=== PATIENT | male | born 1970 | race Caucasian/White ===

== ENCOUNTER 2019-11-25 10:14 | Inpatient (IN) | payer OTHER ==
--- NOTE | 2019-11-25 10:54 | BHS.RME ---
Substance Use & Tx History - Substance Use History Alcohol Substance amount: 2 pints vodka Frequency of use: Daily Substance route: Oral Date of Last Use: 11/24/19 (started age 26 ) Heroin Substance amount: 8-12 bags Frequency of use: Daily Substance route: Injection (ex: intravenous or skin popping) Date of Last Use: 11/24/19 Cocaine- Powder Substance amount: $20 Frequency of use: Daily Substance route: Injection (ex: intravenous or skin popping) Date of Last Use: 11/24/19 Nicotine Substance amount: 4 ciggs Frequency of use: Daily Substance route: Smoking Date of Last Use: 11/25/19 COWS - Scale Resting Pulse: 0= [place] 80 or Below Sweatin= Chills/Flushing Restless Observation: 1= Difficult to Sit Still Pupil Size: 1= Pupils >than Normal Bone or Joint Aches: 1= Mild Discomfort Runny Nose/ Eye Tearin= Runny Nose/Eyes GI Upset > 30mins: 1= Stomach Cramp Tremor Observation: 1= Tremor [place], Not Seen Yawning Observation: 1= 1-2x During Session Anxiety or Irritability: 1=Feels Anxious/Irritable Goose Flesh Skin: 0=Smooth Skin COWS Score: 10 CIWA Nausea/Vomitin Muscle Tremors: 3 Anxiety: 3 Agitation: 3 Paroxysmal Sweats: 4-Forehead w/Sweat Beads Orientation: 0-Oriented Tacttile Disturbances: 0-None Auditory Disturbances: 0-None Visual Disturbances: 0-None Headache: 2-Mild CIWA-Ar Total Score: 18
[2019-11-25 11:32] VITALS: BMI 21.0
--- NOTE | 2019-11-25 11:48 | HP ---
COWS - Scale Resting Pulse: 0= [place] 80 or Below Sweatin= Chills/Flushing Restless Observation: 1= Difficult to Sit Still Pupil Size: 1= Pupils >than Normal Bone or Joint Aches: 1= Mild Discomfort Runny Nose/ Eye Tearin= Runny Nose/Eyes GI Upset > 30mins: 1= Stomach Cramp Tremor Observation: 1= Tremor [place], Not Seen Yawning Observation: 1= 1-2x During Session Anxiety or Irritability: 1=Feels Anxious/Irritable Goose Flesh Skin: 0=Smooth Skin COWS Score: 10 CIWA Score Nausea/Vomitin Muscle Tremors: 3 Anxiety: 3 Agitation: 3 Paroxysmal Sweats: 4-Forehead w/Sweat Beads Orientation: 0-Oriented Tacttile Disturbances: 0-None Auditory Disturbances: 0-None Visual Disturbances: 0-None Headache: 2-Mild CIWA-Ar Total Score: 18 - Admission Criteria OASAS Guidelines: Admission for Medically Managed Detox: Requires at least one of the followin. CIWA greater than 12 2. Seizures within the past 24 hours 3. Delirium tremens within the past 24 hours 4. Hallucinations within the past 24 hours 5. Acute intervention needed for co occurring medical disorder 6. Acute intervention needed for co occurring psychiatric disorder 7. Severe withdrawal that cannot be handled at a lower level of care (continued vomiting, continued diarrhea, abnormal vital signs) requiring intravenous medication and/or fluids 8. Admitting History and Physical - Admission Chief Complaint: Mr. Churchill is a 49 yo man who presents to [facility] requesting detox for alcohol, heroin and nicotine use. Additionally he uses cocaine History of Present Illness: Mr. Churchill is a 49 yo man who presents to [facility] requesting detox for alcohol, heroin and nicotine use. Additionally he uses cocaine He was here several years ago, signed out AMA PMH: HIV on Biktarvy, states he is compliant, HCV untreated. psoriasis PSH: none Psych: Depression, 2 years ago, on Zyprexa, last taken 4 days ago SOC: one room rental in the [place] Legal: none Substance Use History Alcohol Substance amount: 2 pints vodka Frequency of use: Daily Substance route: Oral Date of Last Use: 11/24/19 (started age 26 ) No seizures No blackouts Admits to eyeopener, if not gets shakes Heroin Substance amount: 8-12 bags Frequency of use: Daily Substance route: Injection (ex: intravenous or skin popping) Date of Last Use: 11/24/19 First use age 26y No OD Has Narcan at home Cocaine- Powder Substance amount: $20 Frequency of use: Daily Substance route: Injection (ex: intravenous or skin popping) Date of Last Use: 11/24/19 Began use at age 26y Nicotine Substance amount: 4 ciggs Frequency of use: Daily Substance route: Smoking Date of Last Use: 11/25/19 Began use age 15 y History Source: Patient Limitations to Obtaining History: No Limitations - Smoking History Smoking history: Current every day smoker Have you smoked in the past 12 months: Yes Aproximately how many cigarettes per day: 2 - Alcohol/Substance Use Hx Alcohol Use: Yes (BEER) Admission [facility] Allergies/Adverse Reactions: Allergies Allergy/AdvReac Type Severity Reaction Status Date / Time No Known Allergies Allergy Verified 12/05/14 12:51 Exam Limitations: No Limitations - Ebola screening Have you traveled outside of the country in the last 21 days: No Have you been sick,other than usual withdrawal symptoms: No Do you have a fever: No - Review of Systems Constitutional: Changes in sleep (trouble falling asleep and staying asleep), Unintentional Wgt. Loss (40 lb weight loss in the past 18 mos.) EENT: reports: Blurred Vision (feels he needs glasses, does not have), Hearing Loss (mild) Respiratory: reports: No Symptoms reported Cardiac: reports: No Symptoms Reported GI: reports: Nausea : reports: No Symptoms Reported Musculoskeletal: reports: Back Pain Integumentary: reports: No Symptoms Reported Neuro: reports: No Symptoms reported Endocrine: reports: No Symptoms Reported Hematology: reports: No Symptoms Reported Psychiatric: reports: Depressed (no SI) Patient History - Patient Medical History Hx Anemia: No Hx Asthma: No Hx Chronic Obstructive Pulmonary Disease (COPD): No Hx Cancer: No Hx Cardiac Disorders: No Hx Congestive Heart Failure: No Hx Hypertension: No Hx Hypercholesterolemia: No Hx Pacemaker: No HX Cerebrovascular Accident: No Hx Seizures: No Hx Dementia: No Hx Diabetes: No Hx Gastrointestinal Disorders: No Hx Liver Disease: Yes Hx Genitourinary Disorders: No Hx Sexually Transmitted Disorders: Yes (syphilis) Hx Renal Disease (ESRD): No Hx Thyroid Disease: No Hx Human Immunodeficiency Virus (HIV): Yes (1995,CD4+ 130) Hx Hepatitis C: Yes Hx Depression: Yes Hx Suicide Attempt: No Hx Bipolar Disorder: Yes Hx Schizophrenia: No - Patient Surgical History Past Surgical History: No Hx Neurologic Surgery: No Hx Cataract Extraction: No Hx Cardiac Surgery: No Hx Lung Surgery: No Hx Breast Surgery: No Hx Breast Biopsy: No Hx Abdominal Surgery: No Hx Appendectomy: No Hx Cholecystectomy: No Hx Genitourinary Surgery: No Hx Section: No Hx Orthopedic Surgery: No Anesthesia Reaction: No - PPD History Date: 12/07/14 - Smoking Cessation Smoking history: Current every day smoker Have you smoked in the past 12 months: Yes Aproximately how many cigarettes per day: 4 Hx Chewing Tobacco Use: No Initiated information on smoking cessation: Yes 'Breaking Loose' booklet given: 11/25/19 Admission Physical Exam [facility] - Vital Signs Vital Signs: Vital Signs - 24 hr 11/25/19 11:29 Temperature 97.2 F L Pulse Rate 57 L Respiratory 18 Rate Blood Pressure 120/79 - Physical General Appearance: Yes: No Apparent Distress, Nourished HEENTM: Yes: EOMI, Hearing grossly Normal, Normocephalic, Normal Voice Respiratory: Yes: Lungs Clear, No Respiratory Distress, No Accessory Muscle Use Neck: Yes: Within Normal Limits, Supple Breast: Yes: Breast Exam Deferred Cardiology: Yes: Regular Rhythm, Regular Rate Abdominal: Yes: Non Tender, Flat, Soft, Decreased BS Genitourinary: Yes: Other (deferred) Back: Yes: Normal Inspection Musculoskeletal: Yes: Gait Steady Extremities: Yes: Normal Inspection, Non-Tender Neurological: Yes: Alert, Normal Response Integumentary: Yes: Track Palomo (all clean.), Other (dry patches over cheeks, behind ear, cervical region) Cleared for Admission S - Detox or Rehab [facility] Level of Care: Medically Managed Detox Regimen/Protocol: Methadone/Librium Breathalyzer - Breathalyzer Breathalyzer: 0 Urine Drug Screen - Test Device Lot number: [id number] Expiration date: 06/14/21 - Control Is test valid?: Yes - Results Drug screen NEGATIVE: No Urine drug screen results: THC-Marijuana, MARIA ANTONIA-Cocaine, FEN-Fentanyl, MOP- Opiates, MTD-Methadone, BZO-Benzodiazepines Inpatient Rehab Admission - Rehab Decision to Admit Inpatient rehab admission?: No
[2019-11-25] MEDS ORDERED: MAGNESIUM HYDROX 2400MG/30ML ORAL SUSPENSION 30 ML CUP PO PRN (11:50)
[2019-11-25] MEDS ORDERED: chlordiazePOXIDE HCL 25 MG CAPSULE PO PRN (11:50)
[2019-11-25] MEDS ORDERED: BISMUTH SUBSALICYLATE 524 MG/30 ML UD PO PRN (11:50)
[2019-11-25] MEDS ORDERED: METHOCARBAMOL 500 MG TABLET PO PRN (11:50)
[2019-11-25] MEDS ORDERED: IBUPROFEN 400 MG TABLET (FP) PO PRN (11:50)
[2019-11-25] MEDS ORDERED: MAG HYDROX/AL HYDROX/SIMETH 30 ML UNIT-DOSE CUP PO PRN (11:50)
[2019-11-25] MEDS ORDERED: ONDANSETRON *ODT* 4 MG TABLET SL PRN (11:50)
[2019-11-25] MEDS ORDERED: MENTHOL/PHENOL 1 EACH UD MM PRN (11:50)
[2019-11-25] MEDS ORDERED: NICOTINE POLACRILEX 2 MG GUM BUC PRN (11:50)
[2019-11-25] MEDS ORDERED: METHADONE HCL 10 MG TABLET (FOR DETOX USE ONLY) PO ONE (11:50)
[2019-11-25] MEDS ORDERED: MAGNESIUM CITRATE 300 ML BOTTLE PO PRN (11:50)
[2019-11-25] MEDS ORDERED: cloNIDine HCL 0.1 MG TABLET PO PRN (11:50)
[2019-11-25] MEDS ORDERED: ACETAMINOPHEN 325 MG TABLET (FP) PO PRN ×2 (11:50)
[2019-11-25] MEDS: hydrOXYzine PAMOATE 25 MG CAPSULE (FP) PO SCH ×3 (13:27→22:21)
[2019-11-25 14:01] LABS: HEMATOCRIT 35.1 % (35.4-49); HEMOGLOBIN 11.6 GM/dL (11.7-16.9); MCH 27.6 pg (25.7-33.7); MCHC 33.2 g/dl (32.0-35.9); MEAN CELL VOLUME 83.1 fl (80-96); MEAN PLT VOLUME 10.8 fl (7.5-11.1); PLATELET COUNT 81 K/MM3 (134-434); RBC 4.22 M/mm3 (4.00-5.60); RDW 15.9 % (11.9-15.9); WHITE BLOOD COUNT 2.8 K/mm3 (4.0-10.0)
[2019-11-25 14:12] LABS: ALBUMIN 3.4 g/dl (3.4-5.0); BILIRUBIN,TOTAL 0.2 mg/dL (0.2-1); CALCIUM 8.4 mg/dL (8.5-10.1); CREATININE 0.8 mg/dL (0.55-1.3); POTASSIUM 3.8 mmol/L (3.5-5.1)
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
[2019-11-25] MEDS: chlordiazePOXIDE HCL 25 MG CAPSULE PO SCH ×2 (17:55→22:21)
[2019-11-25] MEDS ORDERED: OLANZapine 7.5 MG TABLET PO SCH (22:00)
[2019-11-25] MEDS: OLANZAPINE 5 MG, OLANZAPINE 2.5 MG PO SCH (22:21)
[2019-11-25] MEDS: BETAMETHASONE DIP 0.05% TP LOTION 30 ML BOTTLE TP SCH (22:21)
[2019-11-25] MEDS: THIAMINE HCL 100 MG TABLET (FP) PO SCH (22:21)
[2019-11-25] MEDS: MELATONIN 5 MG TABLETS PO SCH (22:22)
[2019-11-26] MEDS: chlordiazePOXIDE HCL 25 MG CAPSULE PO SCH ×4 (07:29→22:41)
[2019-11-26] MEDS: hydrOXYzine PAMOATE 25 MG CAPSULE (FP) PO SCH ×5 (07:29→22:41)
[2019-11-26] MEDS ORDERED: METHADONE HCL 5 MG TABLET (FOR DETOX USE ONLY) ONE (08:32)
[2019-11-26] MEDS ORDERED: METHADONE HCL 10 MG TABLET (FOR DETOX USE ONLY) ONE (08:32)
--- NOTE | 2019-11-26 09:04 | EKG ---
Test Reason : Blood Pressure : / mmHG Vent. Rate : 054 BPM Atrial Rate : 054 BPM P-R Int : 148 ms QRS Dur : 092 ms QT Int : 444 ms P-R-T Axes : 081 -15 003 degrees QTc Int : 421 ms SINUS BRADYCARDIA WITH SINUS ARRHYTHMIA OTHERWISE NORMAL ECG NO PREVIOUS ECGS AVAILABLE Confirmed by Renetta Young ([id number]) on 11/26/2019 9:04:40 AM Referred By: Confirmed By:Renetta Young
[2019-11-26] MEDS ORDERED: METHADONE (DETOX) 20 MG, METHADONE (DETOX) 5 MG PO ONE (10:00)
--- NOTE | 2019-11-26 10:17 | PN ---
S CIWA - CIWA Score Nausea/Vomitin-No Nausea/No Vomiting Muscle Tremors: 2 Anxiety: 3 Agitation: 0-Normal Activity Paroxysmal Sweats: 3 Orientation: 0-Oriented Tacttile Disturbances: 0-None Auditory Disturbances: 0-None Visual Disturbances: 0-None Headache: 2-Mild CIWA-Ar Total Score: 10 BHS COWS - Scale Resting Pulse: 0= [place] 80 or Below Sweatin= Chills/Flushing Restless Observation: 1= Difficult to Sit Still Pupil Size: 0= Normal to Room Light Bone or Joint Aches: 2= Severe Diffuse Aches Runny Nose/ Eye Tearin= None GI Upset > 30mins: 0= None Tremor Observation of Outstretched Hands: 2= Slight Tremor Visible Yawning Observation: 2= >3x During Session Anxiety or Irritability: 2=Irritable/Anxious Goose Flesh Skin: 0=Smooth Skin COWS Score: 10 S Progress Note (SOAP) Subjective: c/o irritability, anxiety, sweats, headache, muscle aches, and shakes. Objective: 11/26/19 10:16 Vital Signs 11/26/19 11/26/19 06:26 08:44 Temperature 97.8 F 98.4 F Pulse Rate 60 57 L Respiratory 18 18 Rate Blood Pressure 103/60 113/67 O2 Sat by Pulse 96 Oximetry (%) Laboratory Last Values WBC 2.8 K/mm3 (4.0-10.0) L 11/25/19 11:40 RBC 4.22 M/mm3 (4.00-5.60) 11/25/19 11:40 Hgb 11.6 GM/dL (11.7-16.9) L 11/25/19 11:40 Hct 35.1 % (35.4-49) L 11/25/19 11:40 MCV 83.1 fl (80-96) 11/25/19 11:40 MCH 27.6 pg (25.7-33.7) 11/25/19 11:40 MCHC 33.2 g/dl (32.0-35.9) 11/25/19 11:40 RDW 15.9 % (11.9-15.9) D 11/25/19 11:40 Plt Count 81 K/MM3 (134-434) L D 11/25/19 11:40 MPV 10.8 fl (7.5-11.1) 11/25/19 11:40 Sodium 136 mmol/L (136-145) 11/25/19 11:40 Potassium 3.8 mmol/L (3.5-5.1) 11/25/19 11:40 Chloride 101 mmol/L (98-107) 11/25/19 11:40 Carbon Dioxide 32 mmol/L (21-32) 11/25/19 11:40 Anion Gap 2 MMOL/L (8-16) L 11/25/19 11:40 BUN 14.0 mg/dL (7-18) 11/25/19 11:40 Creatinine 0.8 mg/dL (0.55-1.3) 11/25/19 11:40 Est GFR (CKD-EPI)AfAm 120.72 11/25/19 11:40 Est GFR (CKD-EPI)NonAf 104.16 11/25/19 11:40 Random Glucose 89 mg/dL (74-106) 11/25/19 11:40 Calcium 8.4 mg/dL (8.5-10.1) L 11/25/19 11:40 Total Bilirubin 0.2 mg/dL (0.2-1) 11/25/19 11:40 AST 76 U/L (15-37) H 11/25/19 11:40 ALT 59 U/L (13-61) 11/25/19 11:40 Alkaline Phosphatase 102 U/L (45-117) 11/25/19 11:40 Total Protein 8.0 g/dl (6.4-8.2) 11/25/19 11:40 Albumin 3.4 g/dl (3.4-5.0) 11/25/19 11:40 Syphilis Serology Non-reactive (NONREACTIVE) 11/25/19 11:40 COVID-19 ([facility]ANCO) Not detected (Not Detected) 11/25/19 12:40 Labs noted. Assessment: 11/26/19 10:16 AOX3, in no acute respiratory distress. Full ROM, ambulating in the unit. Withdrawal symptoms. Plan: continue detox.
[2019-11-26] MEDS: PRENATAL VITAMINS W/ FOLIC ACID TABLET (FP) PO SCH (10:50)
[2019-11-26] MEDS: BETAMETHASONE DIP 0.05% TP LOTION 30 ML BOTTLE TP SCH ×2 (10:52→22:40)
[2019-11-26] MEDS: NICOTINE 7 MG/24 HOURS TOPICAL PATCH TD SCH (10:53)
[2019-11-26] MEDS: THIAMINE HCL 100 MG TABLET (FP) PO SCH (22:41)
[2019-11-26] MEDS: OLANZAPINE 5 MG, OLANZAPINE 2.5 MG PO SCH (22:41)
[2019-11-26] MEDS: MELATONIN 5 MG TABLETS PO SCH (22:41)
[2019-11-27] MEDS: chlordiazePOXIDE HCL 25 MG CAPSULE PO SCH ×4 (05:48→22:01)
[2019-11-27] MEDS: hydrOXYzine PAMOATE 25 MG CAPSULE (FP) PO SCH ×5 (05:48→22:01)
[2019-11-27] MEDS ORDERED: METHADONE HCL 10 MG TABLET (FOR DETOX USE ONLY) PO ONE (10:00)
[2019-11-27] MEDS: PRENATAL VITAMINS W/ FOLIC ACID TABLET (FP) PO SCH (10:07)
[2019-11-27] MEDS: BETAMETHASONE DIP 0.05% TP LOTION 30 ML BOTTLE TP SCH ×2 (10:07→22:01)
[2019-11-27] MEDS: NICOTINE 7 MG/24 HOURS TOPICAL PATCH TD SCH (10:07)
--- NOTE | 2019-11-27 13:22 | PN ---
S CIWA - CIWA Score Nausea/Vomitin-Mild Nausea/No Vomiting Muscle Tremors: 2 Anxiety: 3 Agitation: 1-Slight > Activity Paroxysmal Sweats: No Perspiration Orientation: 0-Oriented Tacttile Disturbances: 0-None Auditory Disturbances: 0-None Visual Disturbances: 1-Very Mild Sensitivity Headache: 1-Very Mild CIWA-Ar Total Score: 9 S COWS - Scale Resting Pulse: 0= [place] 80 or Below Sweatin= Chills/Flushing Restless Observation: 0= Sits Still Pupil Size: 1= Pupils >than Normal Bone or Joint Aches: 1= Mild Discomfort Runny Nose/ Eye Tearin= None GI Upset > 30mins: 2= Nausea/Diarrhea Tremor Observation of Outstretched Hands: 2= Slight Tremor Visible Yawning Observation: 0= None Anxiety or Irritability: 2=Irritable/Anxious Goose Flesh Skin: 0=Smooth Skin COWS Score: 9 S Progress Note (SOAP) Subjective: 49 years old male was admitted on 11/25/19 for alcohol and opiate withdrawal sx management treating with librim and methadone detox regiments mr park pump his right lateral of eye brow to the door 1 cm pink dot noted skin intact no swell none tenderness denies alteration in vision denies pain raise eye brows symmetrically mr park requests to change room that "my roommate obsess about the door" instruct mr park refuses to go to the ER for CT scan of the head "It is nothing" denies headache denies dizziness Objective: 11/27/19 13:23 Vital Signs - 24 hr 11/26/19 11/26/19 11/27/19 16:45 21:05 06:14 Temperature 98.4 F 97.3 F L 98.0 F Pulse Rate 66 74 60 Respiratory 16 16 18 Rate Blood Pressure 111/66 119/73 110/71 O2 Sat by Pulse 99 98 Oximetry (%) 11/27/19 11/27/19 08:36 12:32 Temperature 97.3 F L 97.8 F Pulse Rate 80 79 Respiratory 18 18 Rate Blood Pressure 126/76 110/78 O2 Sat by Pulse 100 Oximetry (%) Laboratory Tests 11/25/19 11/25/19 11/25/19 11:40 11:40 11:40 WBC 2.8 L RBC 4.22 Hgb 11.6 L Hct 35.1 L MCV 83.1 MCH 27.6 MCHC 33.2 RDW 15.9 D Plt Count 81 L D MPV 10.8 Sodium 136 Potassium 3.8 Chloride 101 Carbon Dioxide 32 Anion Gap 2 L BUN 14.0 Creatinine 0.8 Est GFR (CKD-EPI)AfAm 120.72 Est GFR (CKD-EPI)NonAf 104.16 Random Glucose 89 Calcium 8.4 L Total Bilirubin 0.2 AST 76 H ALT 59 Alkaline Phosphatase 102 Total Protein 8.0 Albumin 3.4 Syphilis Serology Non-reactive COVID-19 ([facility]ANCO) 11/25/19 12:40 WBC RBC Hgb Hct MCV MCH MCHC RDW Plt Count MPV Sodium Potassium Chloride Carbon Dioxide Anion Gap BUN Creatinine Est GFR (CKD-EPI)AfAm Est GFR (CKD-EPI)NonAf Random Glucose Calcium Total Bilirubin AST ALT Alkaline Phosphatase Total Protein Albumin Syphilis Serology COVID-19 ([facility]ANCO) Not detected long history of hiv with low wbc Assessment: 11/27/19 13:24 alcohol and opiate withdrawal Plan: librium and methadone regiments
[2019-11-27] MEDS: MELATONIN 5 MG TABLETS PO SCH (22:02)
[2019-11-27] MEDS: THIAMINE HCL 100 MG TABLET (FP) PO SCH (22:02)
[2019-11-27] MEDS: OLANZAPINE 5 MG, OLANZAPINE 2.5 MG PO SCH (22:02)
[2019-11-28] MEDS ORDERED: chlordiazePOXIDE HCL 10 MG CAPSULE PO PRN
[2019-11-28] MEDS ORDERED: chlordiazePOXIDE HCL 10 MG CAPSULE PO SCH (05:00)
[2019-11-28 06:23] VITALS: TEMP 97.1
[2019-11-28] MEDS: hydrOXYzine PAMOATE 25 MG CAPSULE (FP) PO SCH ×2 (08:16→09:18)
[2019-11-28] MEDS ORDERED: METHADONE HCL 10 MG TABLET (FOR DETOX USE ONLY) ONE (09:13)
[2019-11-28] MEDS ORDERED: METHADONE HCL 5 MG TABLET (FOR DETOX USE ONLY) ONE (09:14)
[2019-11-28] MEDS: BETAMETHASONE DIP 0.05% TP LOTION 30 ML BOTTLE TP SCH (09:17)
[2019-11-28] MEDS: NICOTINE 7 MG/24 HOURS TOPICAL PATCH TD SCH (09:18)
[2019-11-28] MEDS: PRENATAL VITAMINS W/ FOLIC ACID TABLET (FP) PO SCH (09:18)
[2019-11-28 09:31] VITALS: BP 132/88; PULSE 91
--- NOTE | 2019-11-28 09:46 | DS ---
[facility] Detox Discharge Summary Admission Date: 11/25/19 Discharge Date: 11/28/19 - History Present History: Alcohol Dependence, Opioid Dependence Additional Comments: 49 years old male was admitted on 11/25/19 for alcohol and opiate withdrawal sx management treated with librium and methadone detox regiment mr park insists to leave the detox unit due to no hiv medication prescription mr park last dose of hiv medication was a month ago encourage mr park return to infectious disease provider for proper hiv management seen by psychiatrist karina farooq mr park is alert oriented x 3 speech clearly coherently ambulating steady gaits General Appearance: Yes: No Apparent Distress, Nourished HEENTM: Yes: EOMI, Hearing grossly Normal, Normocephalic, Normal Voice Respiratory: Yes: Lungs Clear, No Respiratory Distress, No Accessory Muscle Use Neck: Yes: Within Normal Limits, Supple Breast: Yes: Breast Exam Deferred Cardiology: Yes: Regular Rhythm, Regular Rate Abdominal: Yes: Non Tender, Flat, Soft, Decreased BS Genitourinary: Yes: Other (deferred) Back: Yes: Normal Inspection Musculoskeletal: Yes: Gait Steady Extremities: Yes: Normal Inspection, Non-Tender Neurological: Yes: Alert, Normal Response Integumentary: Yes: Track [place] (all clean.), Other (dry patches over cheeks, behind ear, cervical region) Pertinent Past History: time for discharge 48 minutes treatment team met with vivian to discuss the benefits of librium and methadone regiments completion mr park states that no hiv medication not stay - Physical Exam Results Vital Signs: Vital Signs Temperature 97.1 F L 11/28/19 08:32 Pulse Rate 91 H 11/28/19 08:32 Respiratory Rate 20 11/28/19 08:32 Blood Pressure 132/88 11/28/19 08:32 O2 Sat by Pulse Oximetry (%) 98 11/28/19 05:27 Pertinent Admission Physical Exam Findings: alcohol and opiate withdrawal Vital Signs - 24 hr 11/27/19 11/27/19 11/27/19 12:32 16:41 20:42 Temperature 97.8 F 97.5 F L 97.5 F L Pulse Rate 79 76 82 Respiratory 18 16 18 Rate Blood Pressure 110/78 106/70 115/71 O2 Sat by Pulse 100 99 Oximetry (%) 09/21/20 09/21/20 05:27 08:32 Temperature 97.1 F L 97.1 F L Pulse Rate 60 91 H Respiratory 18 20 Rate Blood Pressure 110/71 132/88 O2 Sat by Pulse 98 Oximetry (%) Laboratory Tests 11/25/19 11/25/19 11/25/19 11:40 11:40 11:40 WBC 2.8 L RBC 4.22 Hgb 11.6 L Hct 35.1 L MCV 83.1 MCH 27.6 MCHC 33.2 RDW 15.9 D Plt Count 81 L D MPV 10.8 Sodium 136 Potassium 3.8 Chloride 101 Carbon Dioxide 32 Anion Gap 2 L BUN 14.0 Creatinine 0.8 Est GFR (CKD-EPI)AfAm 120.72 Est GFR (CKD-EPI)NonAf 104.16 Random Glucose 89 Calcium 8.4 L Total Bilirubin 0.2 AST 76 H ALT 59 Alkaline Phosphatase 102 Total Protein 8.0 Albumin 3.4 Syphilis Serology Non-reactive COVID-19 ([facility]) 11/25/19 12:40 WBC RBC Hgb Hct MCV MCH MCHC RDW Plt Count MPV Sodium Potassium Chloride Carbon Dioxide Anion Gap BUN Creatinine Est GFR (CKD-EPI)AfAm Est GFR (CKD-EPI)NonAf Random Glucose Calcium Total Bilirubin AST ALT Alkaline Phosphatase Total Protein Albumin Syphilis Serology COVID-19 ([facility]AN[facility]) Not detected lab noted - Treatment Hospital Course: Detox Protocol Followed, Detoxed Safely, Responded well, Discharged Condition Good, Rehab Referral Accepted Patient has Accepted a Rehab Referral to: [facility] - Medication Discharge Medications: Ambulatory Orders Olanzapine [Zyprexa -] 7.5 mg PO HS 12/05/14 Bictegrav/Emtricit/Tenofov Ala [Biktarvy 50-200-25 mg Tablet] 1 each PO DAILY 11/25/19 Naloxone HCl [Narcan] 4 mg NS ASDIR PRN #1 spray 11/28/19 - Diagnosis (1) Opioid dependence, uncomplicated Current Visit: Yes Status: Acute (2) Alcohol use disorder Current Visit: Yes Status: Acute (3) Nicotine dependence Current Visit: Yes Status: Acute Qualifiers: Nicotine product type: cigarettes Substance use status: in withdrawal Qualified Code(s): F17.213 - Nicotine dependence, cigarettes, with withdrawal (4) HIV disease Current Visit: Yes Status: Chronic (5) Substance induced mood disorder Current Visit: Yes Status: Suspected - AMA Did Patient Leave Against Medical Advice: No CIWA Score - CIWA Score Nausea/Vomitin-No Nausea/No Vomiting Muscle Tremors: 2 Anxiety: 2 Agitation: 0-Normal Activity Paroxysmal Sweats: No Perspiration Orientation: 0-Oriented Tacttile Disturbances: 0-None Auditory Disturbances: 0-None Visual Disturbances: 0-None Headache: 0-None Present CIWA-Ar Total Score: 4 COWS (PN) - Opiate Withdrawal Resting Pulse: 1= [place] 81-100 Sweatin= No chills or Flushing Restless Observation: 0= Sits Still Pupil Size: 0= Normal to Room Light Bone or Joint Aches: 0= None Runny Nose/ Eye Tearin= Nasal Congestion GI Upset > 30mins: 0= None Tremor Observation of Outstretched Hands: 1= Tremor [place], Not Seen Yawning Observation: 0= None Anxiety or Irritability: 1=Feels Anxious/Irritable Goose Flesh Skin: 0=Smooth Skin COWS Score: 4
[2019-11-28] MEDS ORDERED: METHADONE (DETOX) 10 MG, METHADONE (DETOX) 5 MG PO ONE (10:00)
[2019-11-29] MEDS ORDERED: chlordiazePOXIDE HCL 10 MG CAPSULE PO SCH (05:00)
[2019-11-29] MEDS ORDERED: METHADONE HCL 10 MG TABLET (FOR DETOX USE ONLY) PO ONE (10:00)
[2019-11-30] MEDS ORDERED: chlordiazePOXIDE HCL 10 MG CAPSULE PO ONE (05:00)
[2019-11-30] MEDS ORDERED: METHADONE HCL 5 MG TABLET (FOR DETOX USE ONLY) PO ONE (06:00)
== END 2019-11-28 09:26 | disposition home or self-care (01) | DRG 773 ==
LOC: YASAS 10:14 → Y3N 11:48
PROVIDERS: ADMIT Allergy & Immunology; ATTEND Allergy & Immunology
PROC: HZ2ZZZZ Detoxification Services for Substance Abuse Treatment (ICD-10-PCS; principal; 2019-11-25)
DX: F10.230 Alcohol dependence with withdrawal, uncomplicated (principal); F11.23 Opioid dependence with withdrawal; F14.20 Cocaine dependence, uncomplicated; F17.210 Nicotine dependence, cigarettes, uncomplicated; F19.24 Other psychoactive substance dependence with psychoactive substance-induced mood disorder; F31.9 Bipolar disorder, unspecified; B20 Human immunodeficiency virus [HIV] disease; G47.00 Insomnia, unspecified; L40.9 Psoriasis, unspecified; B18.2 Chronic viral hepatitis C; Z86.19 Personal history of other infectious and parasitic diseases
CPT/HCPCS: 36415; 80053; 85027; 86780; 93005; 93010; U0003